=== PATIENT | female | born 1945 | race Caucasian/White ===

== ENCOUNTER 2018-05-31 20:41 | Observation (INO) | payer OTHER, MEDICARE, SELFPAY ==
[2018-05-31 20:41] VITALS: BP 178/88; PULSE 111; RESP 16; TEMP 37.2; O2SAT 94; BMI 33.0
--- NOTE | 2018-05-31 20:47 | EKG12_ITS ---
Test Reason : GENERAL ILLNESS Blood Pressure : / mmHG Vent. Rate : 116 BPM Atrial Rate : 116 BPM P-R Int : 142 ms QRS Dur : 080 ms QT Int : 322 ms P-R-T Axes : 062 018 083 degrees QTc Int : 447 ms Sinus tachycardia Possible Left atrial enlargement Nonspecific T wave abnormality Abnormal ECG Confirmed by PARISH SMTIH, REGI ([id number]), news editor JOSHUA BORDEN ([id number]) on 06/05/2018 10:32:05 AM Referred By: Gina Long Confirmed By:REGI LUGO MD
--- NOTE | 2018-05-31 20:55 | RAD_ITS ---
STUDY: X-RAY CHEST REASON FOR EXAM: Female, 72 years old. Elevated blood pressure, nausea, vomiting and weakness since this morning. TECHNIQUE: Single AP portable view of the chest. COMPARISON: None. FINDINGS: Mild elevation of the right diaphragm. The lungs are clear. Normal size heart. Normal mediastinum and romeo. Normal visualized pulmonary arteries. Mild elongation of the thoracic aorta. Normal visualized thoracic spine. Normal visualized ribs, clavicles, and shoulders. There is no demonstrated abnormality of the visualized soft tissue structures of the upper abdomen. RAD/Chest 1 View (Portable) IMPRESSION: Mild elevation of the right diaphragm. No acute cardiopulmonary findings. Negative for consolidation, focal atelectasis, cardiomegaly or pleural effusion. Electronically Signed: Nini Gamboa MD at 21:12 EST , Service support ,
--- NOTE | 2018-05-31 20:56 | CT_ITS ---
STUDY: CT ABDOMEN AND PELVIS WITHOUT CONTRAST REASON FOR EXAM: Female, 72 years old. Abdominal pain and cramping. History of hypertension, diabetes and cholecystectomy. RADIATION DOSAGE (If Supplied By Facility): CTDIvol = ( 17.70 ) mGy, DLP = ( 888.94 ) mGycm TECHNIQUE: Transaxial images were obtained from the dome of the diaphragm to the symphysis pubis without oral contrast, and without intravenous contrast. Sagittal and coronal images were reconstructed. Individualized dose optimization techniques were used for this CT. COMPARISON: None. FINDINGS: The visualized lung bases are unremarkable. The visualized portions of the heart are within normal limits. Fatty hepatomegaly. Nonvisualized gallbladder. Normal spleen. Normal pancreas. Normal bilateral adrenal glands. The right kidney is depressed by the enlarged liver. Otherwise normal right kidney. Normal left kidney. Nondistended partially food filled stomach. Small hiatal hernia. Mildly dilated and probably food filled proximal small bowel with unremarkable mid and distal small bowel. There is no air in the dilated portion of the proximal small bowel; consequently, mucosal changes are not evaluated. Normal colon. There is non-visualization of the appendix. Minimal calcified plaque of the aorta. Normal inferior vena cava. Normal retroperitoneum. Normal urinary bladder. Negative for pelvic mass or free fluid of the pelvis. Benign globular adnexal/ovarian calcifications. Normal abdominal wall. There are diffuse degenerative changes of the visualized lumbar spine. CT/Abdomen/Pelvis without Cont IMPRESSION: Fatty hepatomegaly. Nonvisualized gallbladder. Unremarkable pancreas and spleen. No acute bowel related findings. Negative for evidence of obstruction, perforation or inflammatory bowel changes. Nondistended food filled stomach and food filled mildly dilated proximal small bowel with unremarkable mid and distal small bowel. The appendix is not identified. Mild diverticulosis of the distal colon without evidence of acute diverticulosis. The right kidney is displaced inferiorly by the enlarged right liver. Otherwise normal right kidney and normal left kidney. Negative for pelvic mass or free fluid of the pelvis. Negative for pelvic mass or free fluid of the pelvis. Electronically Signed: Nini Gamboa MD at 22:17 EST , Service support ,
--- NOTE | 2018-05-31 20:58 | ED.DCSUM_ITS ---
- ER Visit Summary Date of Service: 05/31/18 Chief Complaint: [] Nausea all day today History of Present Illness: The patient is a 72 F [] nonspecific nausea all day she had a piece of toast for breakfast this evening she could not eat dinner because she felt nauseated no vomiting no fever no cough no pain normal bowel bladder habits, history of prior cholecystectomy years ago no cardiopulmonary disease of any kind report she has hypertension diabetes are well controlled Physical Examination: [] Afebrile vital signs are all within normal range see those numbers General, no distress resting comfortably HEENT is generally unremarkable The neck is supple no adenopathy Cardiovascular, regular rate and rhythm Lungs, clear bilateral Abdomen, soft nontender. Slightly distended but there is no pain anywhere she indicates having no bowel habits Extremities, no clubbing cyanosis or edema Neurologic, awake alert answering questions appropriately moving all 4 extremities Test Results: [] Emergency Department Course and Treatment: [] All the above screening labs CT fluids screening labs are generally unremarkable, her CT scan shows what appears to be fluid-filled stomach nonspecific changes otherwise but no obvious obstruction or inflammatory changes or acute process She reports despite the therapy she still feels very nauseated does not feel as if she is taking by mouth I discussed the concept of the above CT findings fluid-filled stomach NG tube placement but she declined that and suggest that she would require admission for further management at this time given all the above I will speak with hospitalist Treatment Plan: [] Disposition: [] Admit stable Impression: [] inTractable nausea, distended stomach on CT gastric outlet obstru ction possible prior cholecystectomy This note was generated with [employer] dictation software. It may contain incorrect words, spelling, and punctuation that were not noted in review of the chart donna or to signing ED Disposition - Plan for ED Patient: Referrals: Neema Bowers DO [Primary Care Provider] -
[2018-05-31 21:04] VITALS: PULSE 112; RESP 16; O2SAT 95
[2018-05-31 21:11] LABS: Absolute Lymphocyte Count 1.71 X10^3/ul (0.83-4.51); Absolute Neutrophil Count 7.9 X10^3/uL (2.0-7.7); Basophil# 0.02 X10^3/uL; Basophil% 0.2 % (0-1); Eosinophil# 0.04 X10^3/uL; Eosinophils% 0.4 % (0-5); Hematocrit 43.5 % (37-47); Hemoglobin 13.8 g/dl (12.0-15.0); Lymphocyte # 1.71 X10^3/ul (4.0); Lymphocyte % 17.2 % (19-41); Mean Corp Hgb Conc 31.7 g/gl (32-36); Mean Corpuscular Hgb 28.2 pg (27.0-32.0); Mean Platelet Vol. 10.7 fl (6.2-12.0); Monocyte# 0.31 X10^3/uL; Monocyte% 3.1 % (0-10); Neutrophil # 7.86 X10^3/uL (2.7-7.7); Neutrophil % 78.8 % (47-70); Platelet Count 315 K/mm3 (150-450); RBC Distribution Width CV 13.5 % (11.6-14.6); RBC Distribution Width SD 43.8 fl (35.1-43.9); Red Blood Count 4.89 M/mm3 (4.2-5.4)
[2018-05-31 21:16] LABS: POSITIVE COUNT NO; POSITIVE DIFFERENTIAL NO; POSITIVE MORPHOLOGY NO
[2018-05-31 21:31] LABS: AST(SGOT) 19 U/L (15-37); Alanine Aminotransfer ALT/SGPT 39 U/L (13-56); Albumin, Serum 3.4 g/dL (3.2-5.0); Alkaline Phosphatase 61 U/L (45-117); Anion Gap 16 (5-15); BUN 11 mg/dL (7-18); BUN/Creat Ratio 12.9 RATIO (10-20); Bilirubin, Direct 0.12 mg/dL (0.00-0.30); Calcium,Total 8.5 mg/dL (8.5-10.1); Chloride 104 mmol/L (98-107); Creatinine, Serum 0.85 mg/dL (0.55-1.02); EST Glomerular Filtration Rate 69 mL/min (>60); Est Glom Filt Rate - Afr Amer 84 mL/min (>60); Estimated Creatinine Clearance 46.62 ml/min; Globulin 4.2 g/dL (2.2-4.2); Glucose 334 mg/dL (74-106); Lipase 132 U/L (73-393); Protein, Total 7.6 g/dL (6.4-8.2); Sodium Level 139 mmol/L (136-145)
[2018-05-31] MEDS: Ondansetron 4 MG/2 ML Vial IV (21:34)
[2018-05-31 21:46] LABS: Bacteria 0 SEEN /hpf (None Seen); Mucous, Urine 0 SEEN /hpf (<or=2+); Red Blood Cells-Urine 0 SEEN /hpf (0-5)
[2018-05-31 21:48] LABS: Color, Urine Yellow (Yellow); Glucose, Dipstick 250 mg/dl (Normal); Ketone-Dipstick 50 mg/dl (Negative); Leukocyte Esterase-Dipstick 25 /ul (Negative); Nitrite-Dipstick Negative (Negative); Occult Blood-Urine 10 /ul (Negative); Protein-Dipstick 30 mg/dl (Negative); Urine Bilirubin Dipstick Negative (Negative); Urine Clarity Sl. Cloudy (Clear); Urine Urobilinogen Normal (Normal)
[2018-05-31 22:03] LABS: Squamous Epithelial Cells - UA 5-10 SEEN /hpf (5-10)
[2018-05-31 22:04] LABS: White Blood Cells 0-5 SEEN /hpf (0-5)
--- NOTE | 2018-05-31 22:40 | PCM.HP.STD ---
Problem List (1) Gastroenteritis Status: Acute (2) Viral syndrome Status: Acute (3) Poorly controlled diabetes mellitus Status: Chronic (4) HTN (hypertension) Status: Chronic Qualifiers: Hypertension type: essential hypertension Qualified Code(s): I10 - Essential (primary) hypertension (5) Obesity (BMI 30.0-34.9) Status: Chronic (6) GERD (gastroesophageal reflux disease) Status: Chronic Qualifiers: Esophagitis presence: esophagitis presence not specified Qualified Code(s): K21.9 - Gastro-esophageal reflux disease without esophagitis History of Present Illness Date of Admission: 05/31/18 Chief Complaint: Intractable nausea without emesis The patient is a 72 y/o F w/ PMHx: HTN, Obesity, Diabetes mellitus type II who presents to the [facility] ED on 05/31/18 with history of persistent intractable nausea with no associated emesis with progressively worsening fatigue and malaise with mildly associated abdominal distention and cramping which patient noted improved while in the ED starting AM on day of presentation. Patient does admit that she is a poorly controlled diabetic and states that her blood sugars run 250-300 normally and she does not follow a diabetic diet. 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 Work-up in the ED included T 98.9, heart rate 111, BP 178/88, respiratory rate 16, 94% on room air, CBC with W BC 10, hemoglobin 13.8, platelet 315 with left shift, CMP with, dioxide 19, anion gap 16, BUN/Cr 11/0.85, glucose 334, trop < 0.015, lipase 132, UA w/ SG 1.020, protein 30, glucose 250, ketones 50, occult blood 50, LE 25 otherwise not marked, acetone negative, UCx pending, CXR w/ mild elevation right diaphragm with no acute cardiopulmonary findings, CT A/P w/ fatty hepatomegaly, nonvisualized gallbladder, unremarkable pancreas and spleen, no acute bowel related findings with no evidence for obstruction, perforation or inflammatory bowel changes however noted nondistended fluid-filled stomach and food filled mildly dilated proximal small bowel with unremarkable mid and distal small bowel, appendix not identified, mild diverticulosis of the distal colon without evidence of acute diverticulosis, right kidney displaced inferiorly by the enlarged right liver otherwise normal right kidney and normal left kidney. In the ED patient pattern hanger normal saline, Zofran. Past Medical History Past Medical History (Chronic Problems): Chronic Problems Poorly controlled diabetes mellitus (Chronic) HTN (hypertension) (Chronic) Obesity (BMI 30.0-34.9) (Chronic) GERD (gastroesophageal reflux disease) (Chronic) Allergies Sulfa (Sulfonamide Antibiotics) Allergy (Verified 05/31/18 20:44) Rash Surgical History: - - Cholecystectomy, appendectomy. Psychiatric History: No pertinent psych hx [employer] History: No pertinent [employer] history Lives: Spouse/ Significant Other Smoking Status: Never smoker Tobacco Use: Non-smoker Alcohol: None Drugs: None - *Family History Maternal History Items: - - Patient notes a maternal family history of heart disease. Sibling History Items: - - Patient notes several brothers with heart disease. Paternal History Items: - - Patient notes a paternal family history of cancer, colon. Review of Systems Constitutional: Reports: Anorexia, Malaise, Weakness, Fatigue. Denies: Chills, Fever, Weight Change HEENT: Denies: Head Aches, Sinus Congestion, Sinus Drainage Cardiovascular: Denies: Chest Pain, Palpitations Respiratory: Denies: Cough, Shortness of breath at rest, Sputum production Gastrointestinal: Reports: Abdominal Pain, Nausea. Denies: Diarrhea, Vomiting Genitourinary: Denies: Dysuria Musculoskeletal: Denies: Joint Pain, Joint Tenderness Skin: Denies: Rash, Wounds Neurological: Denies: Numbness, Tingling, Focal weakness Psychiatric: Denies: Anxiety, Depression, Homicidal Ideations, Suicidal Ideations Hematologic/ Lymphatic: Denies: Easy Bruising, Easy Bleeding VTE Information - Inpt Only VTE Present on Admission: No VTE Mechan Device Prophylaxis: SCD's VTE Pharm Prophylaxis ordered?: Yes Patient Problems: Active and Suspected Problems Gastroenteritis (Acute) Viral syndrome (Acute) Subjective: Seated upright in ED bed, no acute distress, mildly fatigued, notes feeling mildly improved, states previous mild distention feels completely resolved since initial ED presentation. Objective: Physical Examination: General: awake, alert, oriented x 3 and cooperative, seated upright in the ED bed, no acute distress, mildly fatigued appearance. Skin: normal color, turgor, no icterus, cyanosis. HEENT: AT/NC, EOMI, PERRLA, dry MM, no carotid bruits or JVD noted. Lungs: CTA bilaterally, moderate effort, mild decrease BL bases, no rales, ronchi or wheezing. Heart: Regular rate and rhythm; no gallop, rub audible. Abdomen: soft, NTTP, minimally distended, notes improved from prior, mildly hyperactive bowel sounds, + HM. Extremities: no cyanosis, clubbing, or edema. Neurological: patient awake, alert, oriented x 3; cognitive function intact; pupils equally reactive to light and accomodation; cranial nerves II-XII grossly normal, moving all 4 extremities, no focal deficits, strength mildly to moderately globally decreased secondary to acute presentation. Psychiatric: affect appears mildly fatigued, no acute evidence of depressive or anxiety feelings. - Physical Exam Vital Signs Temp Pulse Resp BP Pulse Ox 98.9 F 112 H 16 178/88 H 95 05/31/18 20:41 05/31/18 21:04 05/31/18 21:04 05/31/18 20:41 05/31/18 21:04 Oxygen Delivery Method Room Air Weight: 181 lb Body Mass Index (BMI) 33.0 Laboratory Tests Past 24 Hrs 05/31/18 05/31/18 05/31/18 20:57 20:57 20:57 WBC 10.0 RBC 4.89 Hgb 13.8 Hct 43.5 MCV 89.0 MCH 28.2 MCHC 31.7 L RDW 13.5 RDW Differential 43.8 Plt Count 315 MPV 10.7 Immature Gran % (Auto) 0.300 Neut % (Auto) 78.8 H Lymph % (Auto) 17.2 L [place] % (Auto) 3.1 Eos % (Auto) 0.4 Baso % (Auto) 0.2 Absolute Neuts (auto) 7.9 H Absolute Lymphs (auto) 1.71 Total Counted Not Reportable Sodium 139 Potassium 4.0 Chloride 104 Carbon Dioxide 19.0 L Anion Gap 16 H BUN 11 Creatinine 0.85 Estim Creat Clear Calc 46.62 Est GFR (MDRD) Af Amer 84 Est GFR (MDRD) Non-Af 69 BUN/Creatinine Ratio 12.9 Glucose 334 H Calcium 8.5 Total Bilirubin 0.40 Direct Bilirubin 0.12 AST 19 ALT 39 Alkaline Phosphatase 61 Troponin I < 0.015 Total Protein 7.6 Albumin 3.4 Globulin 4.2 Lipase 132 Urine Color Urine Clarity Urine pH Ur Specific [place] Urine Protein Urine Glucose (UA) Urine Ketones Urine Occult Blood Urine Nitrite Urine Bilirubin Urine Urobilinogen Ur Leukocyte Esterase Urine RBC Urine WBC Ur Squamous Epith Cells Urine Bacteria Urine Mucus Acetone Level NEGATIVE 05/31/18 21:36 WBC RBC Hgb Hct MCV MCH MCHC RDW RDW Differential Plt Count MPV Immature Gran % (Auto) Neut % (Auto) Lymph % (Auto) [place] % (Auto) Eos % (Auto) Baso % (Auto) Absolute Neuts (auto) Absolute Lymphs (auto) Total Counted Sodium Potassium Chloride Carbon Dioxide Anion Gap BUN Creatinine Estim Creat Clear Calc Est GFR (MDRD) Af Amer Est GFR (MDRD) Non-Af BUN/Creatinine Ratio Glucose Calcium Total Bilirubin Direct Bilirubin AST ALT Alkaline Phosphatase Troponin I Total Protein Albumin Globulin Lipase Urine Color Yellow Urine Clarity Sl. Cloudy Urine pH 5.0 Ur Specific [place] 1.020 Urine Protein 30 H Urine Glucose (UA) 250 H Urine Ketones 50 H Urine Occult Blood 10 H Urine Nitrite Negative Urine Bilirubin Negative Urine Urobilinogen Normal Ur Leukocyte Esterase 25 H Urine RBC 0 SEEN Urine WBC 0-5 SEEN Ur Squamous Epith Cells 5-10 SEEN Urine Bacteria 0 SEEN Urine Mucus 0 SEEN Acetone Level Assessment/Plan All Active Problems Gastroenteritis (Acute) Viral syndrome (Acute) The patient is a 72 y/o F w/ PMHx: HTN, Obesity, Diabetes mellitus type II who presents to the [facility] ED on 05/31/18 with history of persistent intractable nausea with no associated emesis with progressively worsening fatigue and malaise with mildly associated abdominal distention and cramping which patient noted improved while in the ED starting AM on day of presentation. (1) Intractable Nausea, Possible Viral Gastroenteritis, Possible Gastroparesis: Work-up in the ED included T 98.9, heart rate 111, BP 178/88, respiratory rate 16, 94% on room air, CBC with W BC 10, hemoglobin 13.8, platelet 315 with left shift, CMP with, dioxide 19, anion gap 16, BUN/Cr 11/0.85, glucose 334, trop < 0.015, lipase 132, UA w/ SG 1.020, protein 30, glucose 250, ketones 50, occult blood 50, LE 25 otherwise not marked, acetone negative, UCx pending, CXR w/ mild elevation right diaphragm with no acute cardiopulmonary findings, CT A/P w/ fatty hepatomegaly, nonvisualized gallbladder, unremarkable pancreas and spleen, no acute bowel related findings with no evidence for obstruction, perforation or inflammatory bowel changes however noted nondistended fluid-filled stomach and food filled mildly dilated proximal small bowel with unremarkable mid and distal small bowel, appendix not identified, mild diverticulosis of the distal colon without evidence of acute diverticulosis, right kidney displaced inferiorly by the enlarged right liver otherwise normal right kidney and normal left kidney. Will admit to MS, continue aggressive hydration, if any onset diarrhea would obtain stool studies, maintain NPO status given intractable nausea, dose reglan low dose q 8 x 3 doses in addition to PRN antiemetics, consideration NG for intractable nausea if no improvement with anti-emetics, will not start antibiotics as suspect viral syndrome, possible gastroenteritis although given poorly controlled DM, gastroparesis possibility but no prior history to now. ED noted concerns for gastric outlet obstruction; however, no overt obstruction on imaging and no transition point noted. (2) Diabetes mellitus type II w/ Elevated BS, mild elevated AG, Urinary Ketones w/ Negative Acetone: Presentation w/ intractable nausea, suspected possible viral illness precipitating,likely presentation w/ mild AG elevation, urinary ketones secondary to dehydration, do not suspect overt DKA, will continue to hydrate, maintain NPO until improved, accu checks w/ ISS, HgbA1c pending, nutrition consulted for education and teaching. (3) Hypertension: Continue home regimen; however, given GI symptoms may not tolerate, in interim PRN hydralazine. (4) Obesity: Weight loss and lifestyle changes encouraged, nutrition consulted. (5) GERD: IV Famotidine. (6) DVT Prophylaxis: SCDs, lovenox. Code Visit OBSV E&M: [id number] Initial observation care L3
--- NOTE | 2018-05-31 22:45 | HP.PCM_ITS ---
Problem List (1) Gastroenteritis Status: Acute (2) Viral syndrome Status: Acute (3) Poorly controlled diabetes mellitus Status: Chronic (4) HTN (hypertension) Status: Chronic Qualifiers: Hypertension type: essential hypertension Qualified Code(s): I10 - Essential (primary) hypertension (5) Obesity (BMI 30.0-34.9) Status: Chronic (6) GERD (gastroesophageal reflux disease) Status: Chronic Qualifiers: Esophagitis presence: esophagitis presence not specified Qualified Code(s): K21.9 - Gastro-esophageal reflux disease without esophagitis History of Present Illness Date of Admission: 05/31/18 Chief Complaint: Intractable nausea without emesis The patient is a 72 y/o F w/ PMHx: HTN, Obesity, Diabetes mellitus type II who presents to the [facility] ED on 05/31/18 with history of persistent intractable nausea with no associated emesis with progressively worsening fatigue and malaise with mildly associated abdominal distention and cramping which patient noted improved while in the ED starting AM on day of presentation. Patient does admit that she is a poorly controlled diabetic and states that her blood sugars run 250-300 normally and she does not follow a diabetic diet. 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 Work-up in the ED included T 98.9, heart rate 111, BP 178/88, respiratory rate 16, 94% on room air, CBC with W BC 10, hemoglobin 13.8, platelet 315 with left shift, CMP with, dioxide 19, anion gap 16, BUN/Cr 11/0.85, glucose 334, trop < 0.015, lipase 132, UA w/ SG 1.020, protein 30, glucose 250, ketones 50, occult blood 50, LE 25 otherwise not marked, acetone negative, UCx pending, CXR w/ mild elevation right diaphragm with no acute cardiopulmonary findings, CT A/P w/ fatty hepatomegaly, nonvisualized gallbladder, unremarkable pancreas and spleen, no acute bowel related findings with no evidence for obstruction, perforation or inflammatory bowel changes however noted nondistended fluid-filled stomach and food filled mildly dilated proximal small bowel with unremarkable mid and distal small bowel, appendix not identified, mild diverticulosis of the distal colon without evidence of acute diverticulosis, right kidney displaced inferiorly by the enlarged right liver otherwise normal right kidney and normal left kidney. In the ED patient framing and hanging normal saline, Zofran. Past Medical History Past Medical History (Chronic Problems): Chronic Problems Poorly controlled diabetes mellitus (Chronic) HTN (hypertension) (Chronic) Obesity (BMI 30.0-34.9) (Chronic) GERD (gastroesophageal reflux disease) (Chronic) Allergies Sulfa (Sulfonamide Antibiotics) Allergy (Verified 05/31/18 20:44) Rash Surgical History: - - Cholecystectomy, appendectomy. Psychiatric History: No pertinent psych hx DIRECTOR REVENUE History: No pertinent DIRECTOR REVENUE history Lives: Spouse/ Significant Other Smoking Status: Never smoker Tobacco Use: Non-smoker Alcohol: None Drugs: None - *Family History Maternal History Items: - - Patient notes a maternal family history of heart disease. Sibling History Items: - - Patient notes several brothers with heart disease. Paternal History Items: - - Patient notes a paternal family history of cancer, colon. Review of Systems Constitutional: Reports: Anorexia, Malaise, Weakness, Fatigue. Denies: Chills, Fever, Weight Change HEENT: Denies: Head Aches, Sinus Congestion, Sinus Drainage Cardiovascular: Denies: Chest Pain, Palpitations Respiratory: Denies: Cough, Shortness of breath at rest, Sputum production Gastrointestinal: Reports: Abdominal Pain, Nausea. Denies: Diarrhea, Vomiting Genitourinary: Denies: Dysuria Musculoskeletal: Denies: Joint Pain, Joint Tenderness Skin: Denies: Rash, Wounds Neurological: Denies: Numbness, Tingling, Focal weakness Psychiatric: Denies: Anxiety, Depression, Homicidal Ideations, Suicidal Ideations Hematologic/ Lymphatic: Denies: Easy Bruising, Easy Bleeding VTE Information - Inpt Only VTE Present on Admission: No VTE Mechan Device Prophylaxis: SCD's VTE Pharm Prophylaxis ordered?: Yes Patient Problems: Active and Suspected Problems Gastroenteritis (Acute) Viral syndrome (Acute) Subjective: Seated upright in ED bed, no acute distress, mildly fatigued, notes feeling mildly improved, states previous mild distention feels completely resolved since initial ED presentation. Objective: Physical Examination: General: awake, alert, oriented x 3 and cooperative, seated upright in the ED bed, no acute distress, mildly fatigued appearance. Skin: normal color, turgor, no icterus, cyanosis. HEENT: AT/NC, EOMI, PERRLA, dry MM, no carotid bruits or JVD noted. Lungs: CTA bilaterally, moderate effort, mild decrease BL bases, no rales, ronchi or wheezing. Heart: Regular rate and rhythm; no gallop, rub audible. Abdomen: soft, NTTP, minimally distended, notes improved from prior, mildly hyperactive bowel sounds, + HM. Extremities: no cyanosis, clubbing, or edema. Neurological: patient awake, alert, oriented x 3; cognitive function intact; pupils equally reactive to light and accomodation; cranial nerves II-XII grossly normal, moving all 4 extremities, no focal deficits, strength mildly to moderately globally decreased secondary to acute presentation. Psychiatric: affect appears mildly fatigued, no acute evidence of depressive or anxiety feelings. - Physical Exam Vital Signs Temp Pulse Resp BP Pulse Ox 98.9 F 112 H 16 178/88 H 95 05/31/18 20:41 05/31/18 21:04 05/31/18 21:04 05/31/18 20:41 05/31/18 21:04 Oxygen Delivery Method Room Air Weight: 181 lb Body Mass Index (BMI) 33.0 Laboratory Tests Past 24 Hrs 05/31/18 05/31/18 05/31/18 20:57 20:57 20:57 WBC 10.0 RBC 4.89 Hgb 13.8 Hct 43.5 MCV 89.0 MCH 28.2 MCHC 31.7 L RDW 13.5 RDW Differential 43.8 Plt Count 315 MPV 10.7 Immature Gran % (Auto) 0.300 Neut % (Auto) 78.8 H Lymph % (Auto) 17.2 L [place] % (Auto) 3.1 Eos % (Auto) 0.4 Baso % (Auto) 0.2 Absolute Neuts (auto) 7.9 H Absolute Lymphs (auto) 1.71 Total Counted Not Reportable Sodium 139 Potassium 4.0 Chloride 104 Carbon Dioxide 19.0 L Anion Gap 16 H BUN 11 Creatinine 0.85 Estim Creat Clear Calc 46.62 Est GFR (MDRD) Af Amer 84 Est GFR (MDRD) Non-Af 69 BUN/Creatinine Ratio 12.9 Glucose 334 H Calcium 8.5 Total Bilirubin 0.40 Direct Bilirubin 0.12 AST 19 ALT 39 Alkaline Phosphatase 61 Troponin I < 0.015 Total Protein 7.6 Albumin 3.4 Globulin 4.2 Lipase 132 Urine Color Urine Clarity Urine pH Ur Specific [place] Urine Protein Urine Glucose (UA) Urine Ketones Urine Occult Blood Urine Nitrite Urine Bilirubin Urine Urobilinogen Ur Leukocyte Esterase Urine RBC Urine WBC Ur Squamous Epith Cells Urine Bacteria Urine Mucus Acetone Level NEGATIVE 05/31/18 21:36 WBC RBC Hgb Hct MCV MCH MCHC RDW RDW Differential Plt Count MPV Immature Gran % (Auto) Neut % (Auto) Lymph % (Auto) [place] % (Auto) Eos % (Auto) Baso % (Auto) Absolute Neuts (auto) Absolute Lymphs (auto) Total Counted Sodium Potassium Chloride Carbon Dioxide Anion Gap BUN Creatinine Estim Creat Clear Calc Est GFR (MDRD) Af Amer Est GFR (MDRD) Non-Af BUN/Creatinine Ratio Glucose Calcium Total Bilirubin Direct Bilirubin AST ALT Alkaline Phosphatase Troponin I Total Protein Albumin Globulin Lipase Urine Color Yellow Urine Clarity Sl. Cloudy Urine pH 5.0 Ur Specific [place] 1.020 Urine Protein 30 H Urine Glucose (UA) 250 H Urine Ketones 50 H Urine Occult Blood 10 H Urine Nitrite Negative Urine Bilirubin Negative Urine Urobilinogen Normal Ur Leukocyte Esterase 25 H Urine RBC 0 SEEN Urine WBC 0-5 SEEN Ur Squamous Epith Cells 5-10 SEEN Urine Bacteria 0 SEEN Urine Mucus 0 SEEN Acetone Level Assessment/Plan All Active Problems Gastroenteritis (Acute) Viral syndrome (Acute) The patient is a 72 y/o F w/ PMHx: HTN, Obesity, Diabetes mellitus type II who presents to the [facility] ED on 05/31/18 with history of persistent intractable nausea with no associated emesis with progressively worsening fatigue and malaise with mildly associated abdominal distention and cramping which patient noted improved while in the ED starting AM on day of presentation. (1) Intractable Nausea, Possible Viral Gastroenteritis, Possible Gastroparesis: Work-up in the ED included T 98.9, heart rate 111, BP 178/88, respiratory rate 16, 94% on room air, CBC with W BC 10, hemoglobin 13.8, platelet 315 with left shift, CMP with, dioxide 19, anion gap 16, BUN/Cr 11/0.85, glucose 334, trop < 0.015, lipase 132, UA w/ SG 1.020, protein 30, glucose 250, ketones 50, occult blood 50, LE 25 otherwise not marked, acetone negative, UCx pending, CXR w/ mild elevation right diaphragm with no acute cardiopulmonary findings, CT A/P w/ fatty hepatomegaly, nonvisualized gallbladder, unremarkable pancreas and spleen, no acute bowel related findings with no evidence for obstruction, perforation or inflammatory bowel changes however noted nondistended fluid-filled stomach and food filled mildly dilated proximal small bowel with unremarkable mid and distal small bowel, appendix not identified, mild diverticulosis of the distal colon without evidence of acute diverticulosis, right kidney displaced inferiorly by the enlarged right liver otherwise normal right kidney and normal left kidney. Will admit to MS, continue aggressive hydration, if any onset diarrhea would obtain stool studies, maintain NPO status given intractable nausea, dose reglan low dose q 8 x 3 doses in addition to PRN antiemetics, consideration NG for intractable nausea if no improvement with anti-emetics, will not start antibiotics as suspect viral syndrome, possible gastroenteritis although given poorly controlled DM, gastroparesis possibility but no prior history to now. ED noted concerns for gastric outlet obstruction; however, no overt obstruction on imaging and no transition point noted. (2) Diabetes mellitus type II w/ Elevated BS, mild elevated AG, Urinary Ketones w/ Negative Acetone: Presentation w/ intractable nausea, suspected possible viral illness precipitating,likely presentation w/ mild AG elevation, urinary ketones secondary to dehydration, do not suspect overt DKA, will continue to hydrate, maintain NPO until improved, accu checks w/ ISS, HgbA1c pending, nutrition consulted for education and teaching. (3) Hypertension: Continue home regimen; however, given GI symptoms may not tolerate, in interim PRN hydralazine. (4) Obesity: Weight loss and lifestyle changes encouraged, nutrition consulted. (5) GERD: IV Famotidine. (6) DVT Prophylaxis: SCDs, lovenox. Code Visit OBSV E&M: 75838 Initial observation care L3
[2018-05-31] MEDS: 0.9% Normal Saline 1,000 ML 999 ML IV (23:12)
[2018-05-31 23:13] VITALS: BP 155/73; PULSE 102; RESP 18; O2SAT 93
[2018-05-31 23:15] VITALS: BP 155/73; PULSE 102; RESP 18; O2SAT 93
[2018-05-31 23:34] VITALS: BP 153/65; PULSE 98; RESP 16; TEMP 36.9; O2SAT 98
[2018-05-31 23:35] VITALS: BMI 34.0
[2018-05-31 23:40] VITALS: BMI 34.0
[2018-05-31 23:45] LABS: Magnesium 1.5 mg/dL (1.6-2.6)
[2018-06-01] MEDS: Metoclopramide 10 MG/2 ML Vial 2.5 MG IV ×3 (00:02→15:11)
[2018-06-01] MEDS: Insulin Lispro 100 UNIT/ML INSULN.PEN 10 UNIT SC (00:03)
[2018-06-01 00:10] LABS: Bedside Glucose 282 mg/dL (70-110)
[2018-06-01 00:10] LABS: Hemoglobin A1c 11.4 % (4.2-6.3)
[2018-06-01] MEDS: 0.9% Normal Saline 1,000 ML 150 ML IV ×3 (00:10→12:00)
[2018-06-01] MEDS: Acetaminophen 325 MG Tablet 650 MG PO ×2 (01:58→21:13)
[2018-06-01 05:22] VITALS: BP 134/69; PULSE 98; RESP 18; TEMP 36.8; O2SAT 95
[2018-06-01] MEDS: 0.9% NaCl Peripheral Flush Adult/Peds IV ×2 (05:26→21:13)
[2018-06-01] MEDS: Insulin Lispro 100 UNIT/ML INSULN.PEN SC ×3 (05:26→18:31)
--- NOTE | 2018-06-01 05:55 | RAD_ITS ---
STUDY: X-RAY - ABDOMEN/PELVIS REASON FOR EXAM: Female, 72 years old. Cramping, pain and nausea. TECHNIQUE: AP supine and upright views of the abdomen and pelvis. COMPARISON: CT of the abdomen and pelvis, May 31, 2018. FINDINGS: Normal visualized lung bases. There is an unremarkable bowel gas pattern. Air is seen throughout the nondistended colon without obstruction. There is no evidence of mass. There is no demonstrated free abdominal air. The visualized liver, spleen and kidneys are grossly normal in size and morphology. Normal soft tissue structures. There are diffuse degenerative changes of the visualized lumbar spine. RAD/Abd Inc Decub and/or Erect IMPRESSION: No evidence of acute intra-abdominal or pelvic process. Electronically Signed: Hipolito Richmond DO at 17:18 EST Tel [phone], Service support ,
[2018-06-01 06:26] LABS: Bedside Glucose 285 mg/dL (70-110)
[2018-06-01 06:32] LABS: Absolute Neutrophil Count 5.2 X10^3/uL (2.0-7.7); Basophil# 0.01 X10^3/uL; Basophil% 0.1 % (0-1); Eosinophil# 0.04 X10^3/uL; Eosinophils% 0.6 % (0-5); Hematocrit 38.3 % (37-47); Hemoglobin 12.2 g/dl (12.0-15.0); Lymphocyte % 21.1 % (19-41); Mean Corp Hgb Conc 31.9 g/gl (32-36); Mean Corpuscular Hgb 28.6 pg (27.0-32.0); Mean Corpuscular Volume 89.9 fL (81-99); Mean Platelet Vol. 10.9 fl (6.2-12.0); Monocyte# 0.28 X10^3/uL; Monocyte% 3.9 % (0-10); Neutrophil # 5.24 X10^3/uL (2.7-7.7); Neutrophil % 73.6 % (47-70); Platelet Count 250 K/mm3 (150-450); RBC Distribution Width CV 13.4 % (11.6-14.6); RBC Distribution Width SD 43.4 fl (35.1-43.9); Red Blood Count 4.26 M/mm3 (4.2-5.4); White Blood Count 7.1 K/mm3 (4.4-11.0)
[2018-06-01 06:34] LABS: Anion Gap 11 (5-15); BUN 9 mg/dL (7-18); BUN/Creat Ratio 14.8 RATIO (10-20); Calcium,Total 7.4 mg/dL (8.5-10.1); Chloride 110 mmol/L (98-107); Creatinine, Serum 0.61 mg/dL (0.55-1.02); EST Glomerular Filtration Rate 102 mL/min (>60); Est Glom Filt Rate - Afr Amer 124 mL/min (>60); Estimated Creatinine Clearance 39.63 ml/min; Glucose 315 mg/dL (74-106); Potassium 3.4 mmol/L (3.5-5.1); Sodium Level 141 mmol/L (136-145)
[2018-06-01 06:39] LABS: POSITIVE COUNT NO; POSITIVE DIFFERENTIAL NO; POSITIVE MORPHOLOGY NO
--- NOTE | 2018-06-01 06:47 | PCM.PROGNOTE ---
Patient Problems: Active and Suspected Problems Gastroenteritis (Acute) Viral syndrome (Acute) Subjective: The patient is a 72-year-old female with a past medical history of hypertension, morbid obesity, diabetes mellitus type 2 and GERD who presented to the emergency department at [facility] on 05/31/2018 complaining of persistent nausea. She denied emesis but complained of fatigue/malaise/abdominal distention and cramping. She admitted to not controlling her diabetes and her blood sugars routinely run in the 250-300 range. Vital signs in the emergency department were temperature 98.9, heart rate 111, blood pressure 178/88, respiratory rate 16 and she was 94% saturated on room air. The white blood cell count was 10 with a hemoglobin of 13.8 and platelets of 315,000. There was a left shift. Serum bicarb was low at 9 and the anion gap was increased at 16. Random glucose was 334. Hemoglobin A1c was 11.4%. Mag was low at 1.5 and the LFTs were within normal limits. Lipase was normal at 132. UA was unremarkable. A CT scan of the abdomen and pelvis showed a nonvisualized gallbladder, unremarkable pancreas, fatty infiltration of the liver, a nondistended fluid-filled stomach and fluid-filled mildly dilated proximal small bowel with an unremarkable mid and distal small bowel. There was diverticulosis with no evidence of diverticulitis. She was admitted to the hospital with a diagnosis of gastroenteritis versus gastroparesis secondary to long-standing uncontrolled diabetes mellitus. She was made n.p.o. and IV fluids were ordered. Repeat KUB on 06/01/2018 12 BM's today no recent antibiotics. No sick contacts and no recent travel. Has never had C DIFF. Denies N/V Objective: PHYSICAL EXAM: GENERAL: alert, oriented X 3, Cooperative, NAD, lying flat in bed with no respiratory distress ORAL: moist mucosa, no mucosal lesions NECK: No JVD, supple, trachea midline LUNGS: CTA, symmetric chest expansion HEART: RRR, Normal S1 and S2, no rub, no gallop ABDOMEN: soft, NT, ND, hyperactive BS present, no guarding with palpation, no masses EXTREMITIES: no edema, no cyanosis, no calf tenderness SKIN: No rashes, no breakdown NEUROLOGIC: no focal neurologic deficits PSYCH: appropriate, normal affect, pleasant - Physical Exam Vital Signs Temp Pulse Resp BP Pulse Ox 98.3 F 98 18 134/69 H 95 02/15/19 05:22 06/01/18 05:22 06/01/18 05:22 06/01/18 05:22 06/01/18 05:22 Oxygen Delivery Method Room Air Weight: 186 lb 1.122 oz Body Mass Index (BMI) 34.0 Intake and Output for Last 24 Hours 05/30/18 05/31/18 06/01/18 23:59 23:59 23:59 Intake Total 1217 / 1217 Output Total 300 / 300 Balance 917 / 917 Laboratory Tests Past 24 Hrs 05/31/18 05/31/18 05/31/18 20:57 20:57 20:57 WBC 10.0 RBC 4.89 Hgb 13.8 Hct 43.5 MCV 89.0 MCH 28.2 MCHC 31.7 L RDW 13.5 RDW Differential 43.8 Plt Count 315 MPV 10.7 Immature Gran % (Auto) 0.300 Neut % (Auto) 78.8 H Lymph % (Auto) 17.2 L [place] % (Auto) 3.1 Eos % (Auto) 0.4 Baso % (Auto) 0.2 Absolute Neuts (auto) 7.9 H Absolute Lymphs (auto) 1.71 Total Counted Not Reportable Sodium 139 Potassium 4.0 Chloride 104 Carbon Dioxide 19.0 L Anion Gap 16 H BUN 11 Creatinine 0.85 Estim Creat Clear Calc 46.62 Est GFR (MDRD) Af Amer 84 Est GFR (MDRD) Non-Af 69 BUN/Creatinine Ratio 12.9 Glucose 334 H Hemoglobin A1c Calcium 8.5 Magnesium Total Bilirubin 0.40 Direct Bilirubin 0.12 AST 19 ALT 39 Alkaline Phosphatase 61 Troponin I < 0.015 Total Protein 7.6 Albumin 3.4 Globulin 4.2 Lipase 132 Urine Color Urine Clarity Urine pH Ur Specific [place] Urine Protein Urine Glucose (UA) Urine Ketones Urine Occult Blood Urine Nitrite Urine Bilirubin Urine Urobilinogen Ur Leukocyte Esterase Urine RBC Urine WBC Ur Squamous Epith Cells Urine Bacteria Urine Mucus Acetone Level NEGATIVE 05/31/18 05/31/18 05/31/18 20:57 20:57 21:36 WBC RBC Hgb Hct MCV MCH MCHC RDW RDW Differential Plt Count MPV Immature Gran % (Auto) Neut % (Auto) Lymph % (Auto) [place] % (Auto) Eos % (Auto) Baso % (Auto) Absolute Neuts (auto) Absolute Lymphs (auto) Total Counted Sodium Potassium Chloride Carbon Dioxide Anion Gap BUN Creatinine Estim Creat Clear Calc Est GFR (MDRD) Af Amer Est GFR (MDRD) Non-Af BUN/Creatinine Ratio Glucose Hemoglobin A1c 11.4 H Calcium Magnesium 1.5 L Total Bilirubin Direct Bilirubin AST ALT Alkaline Phosphatase Troponin I Total Protein Albumin Globulin Lipase Urine Color Yellow Urine Clarity Sl. Cloudy Urine pH 5.0 Ur Specific [place] 1.020 Urine Protein 30 H Urine Glucose (UA) 250 H Urine Ketones 50 H Urine Occult Blood 10 H Urine Nitrite Negative Urine Bilirubin Negative Urine Urobilinogen Normal Ur Leukocyte Esterase 25 H Urine RBC 0 SEEN Urine WBC 0-5 SEEN Ur Squamous Epith Cells 5-10 SEEN Urine Bacteria 0 SEEN Urine Mucus 0 SEEN Acetone Level 06/01/18 06/01/18 05:50 05:50 WBC 7.1 RBC 4.26 Hgb 12.2 Hct 38.3 MCV 89.9 MCH 28.6 MCHC 31.9 L RDW 13.4 RDW Differential 43.4 Plt Count 250 MPV 10.9 Immature Gran % (Auto) 0.700 Neut % (Auto) 73.6 H Lymph % (Auto) 21.1 [place] % (Auto) 3.9 Eos % (Auto) 0.6 Baso % (Auto) 0.1 Absolute Neuts (auto) 5.2 Absolute Lymphs (auto) 1.50 Total Counted Not Reportable Sodium 141 Potassium 3.4 L Chloride 110 H Carbon Dioxide 20.0 L Anion Gap 11 BUN 9 Creatinine 0.61 Estim Creat Clear Calc 39.63 Est GFR (MDRD) Af Amer 124 Est GFR (MDRD) Non-Af 102 BUN/Creatinine Ratio 14.8 Glucose 315 H Hemoglobin A1c Calcium 7.4 L Magnesium Total Bilirubin Direct Bilirubin AST ALT Alkaline Phosphatase Troponin I Total Protein Albumin Globulin Lipase Urine Color Urine Clarity Urine pH Ur Specific [place] Urine Protein Urine Glucose (UA) Urine Ketones Urine Occult Blood Urine Nitrite Urine Bilirubin Urine Urobilinogen Ur Leukocyte Esterase Urine RBC Urine WBC Ur Squamous Epith Cells Urine Bacteria Urine Mucus Acetone Level POC Glucose 06/01/18 06/01/18 05:25 00:04 POC Glucose 285 H 282 H Medical Necessity - Tobacco Use Smoking Status: Never smoker Tobacco Use: Non-smoker Assessment/Plan All Active Problems Gastroenteritis (Acute) Viral syndrome (Acute) 1. Gastroenteritis 2. Uncontrolled diabetes mellitus 3. Hypertension 4. Obesity 5. GERD 6. Hypokalemia 7. Metabolic acidosis secondary to diarrhea Fecal leuko's, enteric pathogen panel Recheck lab in the a.m. Continue to hydrate Supplement potassium Start clear liquids Code Visit Inpatient E&M: 08336 Subs Hosp L2
--- NOTE | 2018-06-01 08:23 | NURSING ---
pt off unit for ordered xray at this time.
[2018-06-01] MEDS: Enoxaparin 40 MG/0.4 ML Syringe SC (09:45)
--- NOTE | 2018-06-01 10:23 | NURSING ---
Pt's called in requesting to have pt's diagnosis. This RN checked with pt and obtained verbal consent prior to sharing any information with . Notified that diagnosis written is gastroenteritis-- but advised that this is not confirmed- just possible diagnosis. asked how to spell and was assisted with same. Denied further questions.
[2018-06-01 15:26] LABS: Bedside Glucose 210 mg/dL (70-110)
[2018-06-01 18:41] LABS: Bedside Glucose 197 mg/dL (70-110)
[2018-06-01 20:01] VITALS: BP 145/76; PULSE 91; RESP 16; TEMP 37.2; O2SAT 98
[2018-06-02] MEDS: Insulin Lispro 100 UNIT/ML INSULN.PEN SC ×3 (00:15→11:50)
[2018-06-02 00:21] LABS: Bedside Glucose 209 mg/dL (70-110)
[2018-06-02 02:00] VITALS: BP 140/76; PULSE 87; RESP 18; TEMP 37.1; O2SAT 94
[2018-06-02 06:40] LABS: Bedside Glucose 222 mg/dL (70-110)
[2018-06-02 06:50] LABS: Absolute Lymphocyte Count 1.56 X10^3/ul (0.83-4.51); Absolute Neutrophil Count 3.3 X10^3/uL (2.0-7.7); Basophil# 0.02 X10^3/uL; Basophil% 0.4 % (0-1); Eosinophil# 0.05 X10^3/uL; Eosinophils% 0.9 % (0-5); Hematocrit 38.1 % (37-47); Hemoglobin 12.2 g/dl (12.0-15.0); Lymphocyte # 1.56 X10^3/ul (4.0); Mean Corpuscular Hgb 28.7 pg (27.0-32.0); Mean Corpuscular Volume 89.6 fL (81-99); Mean Platelet Vol. 10.6 fl (6.2-12.0); Monocyte# 0.45 X10^3/uL; Monocyte% 8.4 % (0-10); Neutrophil # 3.28 X10^3/uL (2.7-7.7); Neutrophil % 60.9 % (47-70); Platelet Count 239 K/mm3 (150-450); RBC Distribution Width CV 13.4 % (11.6-14.6); RBC Distribution Width SD 43.4 fl (35.1-43.9); Red Blood Count 4.25 M/mm3 (4.2-5.4); White Blood Count 5.4 K/mm3 (4.4-11.0)
[2018-06-02 07:03] LABS: POSITIVE COUNT NO; POSITIVE DIFFERENTIAL NO; POSITIVE MORPHOLOGY NO
[2018-06-02 07:06] VITALS: O2SAT 94
[2018-06-02 07:06] LABS: Anion Gap 10 (5-15); BUN 3 mg/dL (7-18); BUN/Creat Ratio 6.3 RATIO (10-20); Calcium,Total 7.3 mg/dL (8.5-10.1); Chloride 111 mmol/L (98-107); Creatinine, Serum 0.48 mg/dL (0.55-1.02); EST Glomerular Filtration Rate 135 mL/min (>60); Est Glom Filt Rate - Afr Amer 163 mL/min (>60); Estimated Creatinine Clearance 39.63 ml/min; Glucose 243 mg/dL (74-106); Magnesium 1.6 mg/dL (1.6-2.6); Phosphorus 2.2 mg/dL (2.5-4.9); Potassium 3.1 mmol/L (3.5-5.1); Sodium Level 142 mmol/L (136-145)
[2018-06-02 10:30] VITALS: BP 156/89; PULSE 83; RESP 18; TEMP 36.9; O2SAT 96
[2018-06-02] MEDS: Enoxaparin 40 MG/0.4 ML Syringe SC (10:44)
[2018-06-02 11:56] LABS: Bedside Glucose 193 mg/dL (70-110)
--- NOTE | 2018-06-02 12:24 | PCM.PROGNOTE ---
Patient Problems: Active and Suspected Problems Gastroenteritis (Acute) Viral syndrome (Acute) Subjective: All events of the past 24 hours of been reviewed. She has been afebrile since admission. Blood pressures are mildly increased. She is 94-98% saturated on room air. All lab was personally reviewed. CBC is within normal limits. Potassium is low at 3.1 today and the BUN is 3 with a creatinine of 0.48. Phosphorus is low at 2.2 and the magnesium is 1.6. Blood sugars are in the high 100s and low 200s. Fecal leukocytes were positive. Apparently there was no stool collected for the enteric pathogen panel. Urine culture had mixed gram-positive and gram-negative organisms in the urine had only 0-5 WBCs with no bacteria so urinary tract infection has been ruled out. - Physical Exam Vital Signs Temp Pulse Resp BP Pulse Ox 98.5 F 83 18 156/89 H 96 06/02/18 10:30 06/02/18 10:30 06/02/18 10:30 06/02/18 10:30 06/02/18 10:30 Oxygen Delivery Method Room Air Weight: 186 lb 1.122 oz Body Mass Index (BMI) 34.0 Intake and Output for Last 24 Hours 05/31/18 06/01/18 06/02/18 23:59 23:59 23:59 Intake Total 1217 / 1217 4756 / 4756 Output Total 300 / 300 1100 / 1100 Balance 917 / 917 3656 / 3656 Microbiology Past 72 Hours 05/31/18 21:36 Urine Culture - Final Urine, Clean Catch Mixed Gram Pos & Gram Neg Org 06/02/18 05:39 Stool Lactoferrin - Final Stool Laboratory Tests Past 24 Hrs 06/02/18 06/02/18 06:34 06:34 WBC 5.4 RBC 4.25 Hgb 12.2 Hct 38.1 MCV 89.6 MCH 28.7 MCHC 32.0 RDW 13.4 RDW Differential 43.4 Plt Count 239 MPV 10.6 Immature Gran % (Auto) 0.400 Neut % (Auto) 60.9 Lymph % (Auto) 29.0 [place] % (Auto) 8.4 Eos % (Auto) 0.9 Baso % (Auto) 0.4 Absolute Neuts (auto) 3.3 Absolute Lymphs (auto) 1.56 Total Counted Not Reportable Sodium 142 Potassium 3.1 L Chloride 111 H Carbon Dioxide 21.0 Anion Gap 10 BUN 3 L Creatinine 0.48 L Estim Creat Clear Calc 39.63 Est GFR (MDRD) Af Amer 163 Est GFR (MDRD) Non-Af 135 BUN/Creatinine Ratio 6.3 L Glucose 243 H Calcium 7.3 L Phosphorus 2.2 L Magnesium 1.6 POC Glucose 06/02/18 06/02/18 06/02/18 11:48 06:35 00:13 POC Glucose 193 H 222 H 209 H 06/01/18 06/01/18 18:29 15:09 POC Glucose 197 H 210 H Medical Necessity - Tobacco Use Smoking Status: Never smoker Tobacco Use: Non-smoker Assessment/Plan All Active Problems Gastroenteritis (Acute) Viral syndrome (Acute)
--- NOTE | 2018-06-02 14:20 | PCM.DC ---
- Discharge Diagnoses Current Active Problems: Current Active and Chronic Problems Gastroenteritis (Acute) Viral syndrome (Acute) Poorly controlled diabetes mellitus (Chronic) HTN (hypertension) (Chronic) Obesity (BMI 30.0-34.9) (Chronic) GERD (gastroesophageal reflux disease) (Chronic) You will use the following diet at home:: Other - stick to a 1600 calorie diet to help lose weight and get control of the blood sugars. No caffeine for 1 week and no dairy of the next 7-10 days.....caffeine and dairy will increase diarrhea. I would stick to a soft diet for the next 24 hours and then advance as tolerated. Your food should be the consistency of: Regular Your liquids should be the consistency of: Regular/Thin Discharge Activity: Return to Normal Activity Return to work on:: 06/05/18 Call your doctor if you observe: Fever of 101 or Higher, Dizziness, Fainting spells, - - recurrent nausea and vomiting, uncontrollable diarrhea, abdominal pain Instructions: ED Gastroenteritis Viral, MyPlate Worksheet: 1,600 Calories, Using a Blood Sugar Log, Long-Term Complications of Diabetes, Resources for People with Diabetes Additional Instructions: 1. The vice president of news's at the hospital have a program to help diabetics manage their diet and teach you how to make better choices in food. You will need a referral from Dr. Bowers or your current PCP to attend the program. Exercise will help to bring the blood sugar down. Weight loss also helps to bring the blood sugar down and walking is great exercise. 2. Uncontrolled diabetes makes you urinate a lot and this leads to dehydration, low potassium, low phosphorous and low magnesium. I am giving you prescriptions for potassium and phosphorous to take for the next few days to bring the potassium and the phosphorous into the normal range. 3. I am giving you a prescription for a medication to help control the blood sugars......it is called Glimiperide and you will take it once a day. Write the blood sugars down when you take it......Take it in the morning before breakfast and at night 2 hours after supper. Bring the record to your next doctor's appt. 4. It is OK for you to take Kaopectate or immodium for the diarrhea Allergies/Adverse Reactions: Allergies Sulfa (Sulfonamide Antibiotics) Allergy (Verified 05/31/18 23:39) Rash Medications to take at Discharge Glimepiride [Amaryl] 2 mg PO DAILY #30 tab 06/02/18 Na Biphos/Potassium Phosphate [Neutra-Phos Packet] 2 packet PO BID #16 packet 06/02/18 Potassium Chloride [K-Dur] 20 meq PO BID #6 tab 06/02/18 The following prescriptions were given: Glimepiride [Amaryl] 2 mg PO DAILY #30 tab Na Biphos/Potassium Phosphate [Neutra-Phos Packet] 2 packet PO BID #16 packet Potassium Chloride [K-Dur] 20 meq PO BID #6 tab Primary Care Physician: Neema Bowers DO [Primary Care Provider] - Please follow up with your Primary Care Physician in: 2 weeks Test Results: Test results from this visit will be discussed in further detail at your follow-up appointment, if applicable. Proposed Discharge Date: 06/02/18
--- NOTE | 2018-06-02 14:25 | DCINST_ITS ---
- Discharge Diagnoses Current Active Problems: Current Active and Chronic Problems Gastroenteritis (Acute) Viral syndrome (Acute) Poorly controlled diabetes mellitus (Chronic) HTN (hypertension) (Chronic) Obesity (BMI 30.0-34.9) (Chronic) GERD (gastroesophageal reflux disease) (Chronic) You will use the following diet at home:: Other - stick to a 1600 calorie diet to help lose weight and get control of the blood sugars. No caffeine for 1 week and no dairy of the next 7-10 days.....caffeine and dairy will increase diarrhea. I would stick to a soft diet for the next 24 hours and then advance as tolerated. Your food should be the consistency of: Regular Your liquids should be the consistency of: Regular/Thin Discharge Activity: Return to Normal Activity Return to work on:: 06/05/18 Call your doctor if you observe: Fever of 101 or Higher, Dizziness, Fainting spells, - - recurrent nausea and vomiting, uncontrollable diarrhea, abdominal pain Instructions: ED Gastroenteritis Viral, MyPlate Worksheet: 1,600 Calories, Using a Blood Sugar Log, Long-Term Complications of Diabetes, Resources for People with Diabetes Additional Instructions: 1. The [employer]'s at the hospital have a program to help diabetics manage their diet and teach you how to make better choices in food. You will need a referral from Dr. Bowers or your current PCP to attend the program. Exercise will help to bring the blood sugar down. Weight loss also helps to bring the blood sugar down and walking is great exercise. 2. Uncontrolled diabetes makes you urinate a lot and this leads to dehydration, low potassium, low phosphorous and low magnesium. I am giving you prescriptions for potassium and phosphorous to take for the next few days to bring the potassium and the phosphorous into the normal range. 3. I am giving you a prescription for a medication to help control the blood sugars......it is called Glimiperide and you will take it once a day. Write the blood sugars down when you take it......Take it in the morning before breakfast and at night 2 hours after supper. Bring the record to your next doctor's appt. 4. It is OK for you to t roopa Kaopectate or immodium for the diarrhea Allergies/Adverse Reactions: Allergies Sulfa (Sulfonamide Antibiotics) Allergy (Verified 05/31/18 23:39) Rash Medications to take at Discharge Glimepiride [Amaryl] 2 mg PO DAILY #30 tab 06/02/18 Na Biphos/Potassium Phosphate [Neutra-Phos Packet] 2 packet PO BID #16 packet 06/02/18 Potassium Chloride [K-Dur] 20 meq PO BID #6 tab 06/02/18 The following prescriptions were given: Glimepiride [Amaryl] 2 mg PO DAILY #30 tab Na Biphos/Potassium Phosphate [Neutra-Phos Packet] 2 packet PO BID #16 packet Potassium Chloride [K-Dur] 20 meq PO BID #6 tab Primary Care Physician: Neema Bowers DO [Primary Care Provider] - Please follow up with your Primary Care Physician in: 2 weeks Test Results: Test results from this visit will be discussed in further detail at your follow- up appointment, if applicable. Proposed Discharge Date: 06/02/18
--- NOTE | 2018-06-02 14:33 | PCM.DC.SUM ---
Discharge Date and Diagnosis Date of Admission: 05/31/18 Date of Discharge: 06/02/18 - Primary Discharge Diagnosis Active and Suspected Problems Gastroenteritis (Acute) Viral syndrome (Acute) Metabolic acidosis (Acute) Hypomagnesemia (Acute) Hypokalemia (Acute) Hypophosphatemia - Secondary Discharge Diagnosis Chronic Problems Poorly controlled diabetes mellitus (Chronic) - not taking any medication and the HGBA1C is 11.4% HTN (hypertension) (Chronic) Obesity (BMI 30.0-34.9) (Chronic) GERD (gastroesophageal reflux disease) (Chronic) Diverticulosis Hospital Course and Treatment Imaging Results: Clinical Impression(s) from Imaging Studies Chest X-Ray 05/31/18 20:55 IMPRESSION: Mild elevation of the right diaphragm. No acute cardiopulmonary findings. Negative for consolidation, focal atelectasis, cardiomegaly or pleural effusion. Electronically Signed: Nini Gamboa MD at 21:12 EST , Service support , Abdomen/Pelvis CT 05/31/18 20:56 IMPRESSION: Fatty hepatomegaly. Nonvisualized gallbladder. Unremarkable pancreas and spleen. No acute bowel related findings. Negative for evidence of obstruction, perforation or inflammatory bowel changes. Nondistended food filled stomach and food filled mildly dilated proximal small bowel with unremarkable mid and distal small bowel. The appendix is not identified. Mild diverticulosis of the distal colon without evidence of acute diverticulosis. The right kidney is displaced inferiorly by the enlarged right liver. Otherwise normal right kidney and normal left kidney. Negative for pelvic mass or free fluid of the pelvis. Negative for pelvic mass or free fluid of the pelvis. Electronically Signed: Nini Gamboa MD at 22:17 EST , Service support , Abdomen X-Ray 06/01/18 05:55 IMPRESSION: No evidence of acute intra-abdominal or pelvic process. Electronically Signed: Hipolito Richmond DO at 17:18 EST Tel [phone], Service support , Microbiology 05/31/18 21:36 Urine, Clean Catch Urine Culture - Final Mixed Gram Pos & Gram Neg Org 06/02/18 05:39 Stool Stool Lactoferrin - Final Laboratory Results - last 24 hr 06/01/18 06/01/18 06/02/18 15:09 18:29 00:13 WBC RBC Hgb Hct MCV MCH MCHC RDW RDW Differential Plt Count MPV Immature Gran % (Auto) Neut % (Auto) Lymph % (Auto) Power % (Auto) Eos % (Auto) Baso % (Auto) Absolute Neuts (auto) Absolute Lymphs (auto) Total Counted Sodium Potassium Chloride Carbon Dioxide Anion Gap BUN Creatinine Estim Creat Clear Calc Est GFR (MDRD) Af Amer Est GFR (MDRD) Non-Af BUN/Creatinine Ratio Glucose Calcium Phosphorus Magnesium POC Glucose 210 H 197 H 209 H 06/02/18 06/02/18 06/02/18 06:34 06:34 06:35 WBC 5.4 RBC 4.25 Hgb 12.2 Hct 38.1 MCV 89.6 MCH 28.7 MCHC 32.0 RDW 13.4 RDW Differential 43.4 Plt Count 239 MPV 10.6 Immature Gran % (Auto) 0.400 Neut % (Auto) 60.9 Lymph % (Auto) 29.0 Power % (Auto) 8.4 Eos % (Auto) 0.9 Baso % (Auto) 0.4 Absolute Neuts (auto) 3.3 Absolute Lymphs (auto) 1.56 Total Counted Not Reportable Sodium 142 Potassium 3.1 L Chloride 111 H Carbon Dioxide 21.0 Anion Gap 10 BUN 3 L Creatinine 0.48 L Estim Creat Clear Calc 39.63 Est GFR (MDRD) Af Amer 163 Est GFR (MDRD) Non-Af 135 BUN/Creatinine Ratio 6.3 L Glucose 243 H Calcium 7.3 L Phosphorus 2.2 L Magnesium 1.6 POC Glucose 222 H 06/02/18 11:48 WBC RBC Hgb Hct MCV MCH MCHC RDW RDW Differential Plt Count MPV Immature Gran % (Auto) Neut % (Auto) Lymph % (Auto) Power % (Auto) Eos % (Auto) Baso % (Auto) Absolute Neuts (auto) Absolute Lymphs (auto) Total Counted Sodium Potassium Chloride Carbon Dioxide Anion Gap BUN Creatinine Estim Creat Clear Calc Est GFR (MDRD) Af Amer Est GFR (MDRD) Non-Af BUN/Creatinine Ratio Glucose Calcium Phosphorus Magnesium POC Glucose 193 H none Operations: None Procedures: None Summary of Care Provided: The patient is a 72-year-old female with a past medical history of hypertension, morbid obesity, diabetes mellitus type 2 and GERD who presented to the emergency department at [facility] on 05/31/2018 complaining of persistent nausea. She denied emesis but complained of fatigue/malaise/abdominal distention and cramping. She admitted to not controlling her diabetes and her blood sugars routinely run in the 250-300 range. Vital signs in the emergency department were temperature 98.9, heart rate 111, blood pressure 178/88, respiratory rate 16 and she was 94% saturated on room air. The white blood cell count was 10 with a hemoglobin of 13.8 and platelets of 315,000. There was a left shift. Serum bicarb was low at 9 and the anion gap was increased at 16. Random glucose was 334. Hemoglobin A1c was 11.4%. Mag was low at 1.5 and the LFTs were within normal limits. Lipase was normal at 132. UA was unremarkable. A CT scan of the abdomen and pelvis showed a nonvisualized gallbladder, unremarkable pancreas, fatty infiltration of the liver, a nondistended fluid-filled stomach and fluid-filled mildly dilated proximal small bowel with an unremarkable mid and distal small bowel. There was diverticulosis with no evidence of diverticulitis. She was admitted to the hospital with a diagnosis of gastroenteritis versus gastroparesis secondary to long-standing uncontrolled diabetes mellitus. She was made n.p.o. and IV fluids were ordered. Repeat KUB on 06/01/2018 showed no evidence of acute intra-abdominal or pelvic process. There was air seen throughout the nondistended colon without obstruction. She was admitted to the hospital and placed at bowel rest. Intravenous fluids were ordered. Potassium and phosphorus were supplemented. A stool lactoferrin was positive for white blood cells but the diarrhea resolved prior to obtaining a liquid stool for an enteric pathogen panel. Her diet was advanced to clear liquids then to full liquids with no recurrence of nausea/vomiting/diarrhea/abdominal. She was discharged home on 06/02/2018 and was given a prescription for Amaryl and instructed to take 2 mg daily. She was sent home with a prescription for 4 days worth of Neutra-Phos and 3 days of potassium chloride. She was instructed to maintain good intake, enough to keep her urine a pale yellow. We did not start metformin due to the diarrhea. She will follow-up with Dr. Bowers in the office in 2 weeks and she was instructed to keep a blood sugar record. She was interested in following up with the dietitians program to manage diabetes but will need a referral from Dr. Moscoso. GENERAL: alert, oriented X 3, Cooperative, NAD, lying flat in bed with no respiratory distress ORAL: moist mucosa, no mucosal lesions NECK: No JVD, supple, trachea midline LUNGS: CTA, symmetric chest expansion HEART: RRR, Normal S1 and S2, no rub, no gallop ABDOMEN: soft, NT, ND, hyperactive BS present, no guarding with palpation, no masses EXTREMITIES: no edema, no cyanosis, no calf tenderness SKIN: No rashes, no breakdown NEUROLOGIC: no focal neurologic deficits PSYCH: appropriate, normal affect, pleasant This note was generated with [email or web address] dictation software. It may contain incorrect words, spelling, and punctuation that were not noted in checking the note before signing. - Physical Exam Vital Signs Temp Pulse Resp BP Pulse Ox 98.5 F 83 18 156/89 H 96 06/02/18 10:30 06/02/18 10:30 06/02/18 10:30 06/02/18 10:30 06/02/18 10:30 Oxygen Delivery Method Room Air Weight: 186 lb 1.122 oz Body Mass Index (BMI) 34.0 Intake and Output for Last 24 Hours 05/31/18 06/01/18 06/02/18 23:59 23:59 23:59 Intake Total 1217 / 1217 4756 / 4756 Output Total 300 / 300 1100 / 1100 Balance 917 / 917 3656 / 3656 Microbiology Past 72 Hours 05/31/18 21:36 Urine Culture - Final Urine, Clean Catch Mixed Gram Pos & Gram Neg Org 06/02/18 05:39 Stool Lactoferrin - Final Stool Laboratory Tests Past 24 Hrs 06/02/18 06/02/18 06:34 06:34 WBC 5.4 RBC 4.25 Hgb 12.2 Hct 38.1 MCV 89.6 MCH 28.7 MCHC 32.0 RDW 13.4 RDW Differential 43.4 Plt Count 239 MPV 10.6 Immature Gran % (Auto) 0.400 Neut % (Auto) 60.9 Lymph % (Auto) 29.0 Power % (Auto) 8.4 Eos % (Auto) 0.9 Baso % (Auto) 0.4 Absolute Neuts (auto) 3.3 Absolute Lymphs (auto) 1.56 Total Counted Not Reportable Sodium 142 Potassium 3.1 L Chloride 111 H Carbon Dioxide 21.0 Anion Gap 10 BUN 3 L Creatinine 0.48 L Estim Creat Clear Calc 39.63 Est GFR (MDRD) Af Amer 163 Est GFR (MDRD) Non-Af 135 BUN/Creatinine Ratio 6.3 L Glucose 243 H Calcium 7.3 L Phosphorus 2.2 L Magnesium 1.6 POC Glucose 06/02/18 06/02/18 06/02/18 11:48 06:35 00:13 POC Glucose 193 H 222 H 209 H 06/01/18 06/01/18 18:29 15:09 POC Glucose 197 H 210 H Discharge Activity: Return to Normal Activity Return to work on:: 06/05/18 Call your doctor if you observe: Fever of 101 or Higher, Dizziness, Fainting spells, - - recurrent nausea and vomiting, uncontrollable diarrhea, abdominal pain Home Medications: Medications to take at Discharge Glimepiride [Amaryl] 2 mg PO DAILY #30 tab 06/02/18 Na Biphos/Potassium Phosphate [Neutra-Phos Packet] 2 packet PO BID #16 packet 06/02/18 Potassium Chloride [K-Dur] 20 meq PO BID #6 tab 06/02/18 Following Prescrptions Were Given to Patient: Glimepiride [Amaryl] 2 mg PO DAILY #30 tab Na Biphos/Potassium Phosphate [Neutra-Phos Packet] 2 packet PO BID #16 packet Potassium Chloride [K-Dur] 20 meq PO BID #6 tab Primary Care Physician: Neema Bowers DO [Primary Care Provider] - Please follow up with your Primary Care Physician in: 2 weeks Patient Instructions: Using a Blood Sugar Log, Long-Term Complications of Diabetes, Resources for People with Diabetes, MyPlate Worksheet: 1,600 Calories, ED Gastroenteritis Viral Minutes spent on discharge:: 30 Patient Condition:: Good Medical Necessity - Tobacco Use Smoking Status: Never smoker Tobacco Use: Non-smoker Meaningful Use Info Meaningful Use Diagnoses (Choose all that apply): None applicable Code Visit Inpatient E&M: 09231 Disch Hosp
--- NOTE | 2018-06-02 14:36 | DS.PCM_ITS ---
Discharge Date and Diagnosis Date of Admission: 05/31/18 Date of Discharge: 06/02/18 - Primary Discharge Diagnosis Active and Suspected Problems Gastroenteritis (Acute) Viral syndrome (Acute) Metabolic acidosis (Acute) Hypomagnesemia (Acute) Hypokalemia (Acute) Hypophosphatemia - Secondary Discharge Diagnosis Chronic Problems Poorly controlled diabetes mellitus (Chronic) - not taking any medication and the HGBA1C is 11.4% HTN (hypertension) (Chronic) Obesity (BMI 30.0-34.9) (Chronic) GERD (gastroesophageal reflux disease) (Chronic) Diverticulosis Hospital Course and Treatment Imaging Results: Clinical Impression(s) from Imaging Studies Chest X-Ray 05/31/18 20:55 IMPRESSION: Mild elevation of the right diaphragm. No acute cardiopulmonary findings. Negative for consolidation, focal atelectasis, cardiomegaly or pleural effusion. Electronically Signed: Nini Gamboa MD at 21:12 EST , Service support , Abdomen/Pelvis CT 05/31/18 20:56 IMPRESSION: Fatty hepatomegaly. Nonvisualized gallbladder. Unremarkable pancreas and spleen. No acute bowel related findings. Negative for evidence of obstruction, perforation or inflammatory bowel changes. Nondistended food filled stomach and food filled mildly dilated proximal small bowel with unremarkable mid and distal small bowel. The appendix is not identified. Mild diverticulosis of the distal colon without evidence of acute diverticulosis. The right kidney is displaced inferiorly by the enlarged right liver. Otherwise normal right kidney and normal left kidney. Negative for pelvic mass or free fluid of the pelvis. Negative for pelvic mass or free fluid of the pelvis. Electronically Signed: Nini Gamboa MD at 22:17 EST , Service support , Abdomen X-Ray 06/01/18 05:55 IMPRESSION: No evidence of acute intra-abdominal or pelvic process. Electronically Signed: Hipolito Richmond DO at 17:18 EST Tel [phone], Service support , Microbiology 05/31/18 21:36 Urine, Clean Catch Urine Culture - Final Mixed Gram Pos & Gram Neg Org 06/02/18 05:39 Stool Stool Lactoferrin - Final Laboratory Results - last 24 hr 06/01/18 06/01/18 06/02/18 15:09 18:29 00:13 WBC RBC Hgb Hct MCV MCH MCHC RDW RDW Differential Plt Count MPV Immature Gran % (Auto) Neut % (Auto) Lymph % (Auto) Dawes % (Auto) Eos % (Auto) Baso % (Auto) Absolute Neuts (auto) Absolute Lymphs (auto) Total Counted Sodium Potassium Chloride Carbon Dioxide Anion Gap BUN Creatinine Estim Creat Clear Calc Est GFR (MDRD) Af Amer Est GFR (MDRD) Non-Af BUN/Creatinine Ratio Glucose Calcium Phosphorus Magnesium POC Glucose 210 H 197 H 209 H 06/02/18 06/02/18 06/02/18 06:34 06:34 06:35 WBC 5.4 RBC 4.25 Hgb 12.2 Hct 38.1 MCV 89.6 MCH 28.7 MCHC 32.0 RDW 13.4 RDW Differential 43.4 Plt Count 239 MPV 10.6 Immature Gran % (Auto) 0.400 Neut % (Auto) 60.9 Lymph % (Auto) 29.0 Dawes % (Auto) 8.4 Eos % (Auto) 0.9 Baso % (Auto) 0.4 Absolute Neuts (auto) 3.3 Absolute Lymphs (auto) 1.56 Total Counted Not Reportable Sodium 142 Potassium 3.1 L Chloride 111 H Carbon Dioxide 21.0 Anion Gap 10 BUN 3 L Creatinine 0.48 L Estim Creat Clear Calc 39.63 Est GFR (MDRD) Af Amer 163 Est GFR (MDRD) Non-Af 135 BUN/Creatinine Ratio 6.3 L Glucose 243 H Calcium 7.3 L Phosphorus 2.2 L Magnesium 1.6 POC Glucose 222 H 06/02/18 11:48 WBC RBC Hgb Hct MCV MCH MCHC RDW RDW Differential Plt Count MPV Immature Gran % (Auto) Neut % (Auto) Lymph % (Auto) Dawes % (Auto) Eos % (Auto) Baso % (Auto) Absolute Neuts (auto) Absolute Lymphs (auto) Total Counted Sodium Potassium Chloride Carbon Dioxide Anion Gap BUN Creatinine Estim Creat Clear Calc Est GFR (MDRD) Af Amer Est GFR (MDRD) Non-Af BUN/Creatinine Ratio Glucose Calcium Phosphorus Magnesium POC Glucose 193 H none Operations: None Procedures: None Summary of Care Provided: The patient is a 72-year-old female with a past medical history of hypertension, morbid obesity, diabetes mellitus type 2 and GERD who presented to the emergency department at [facility] on 05/31/2018 complaining of persistent nausea. She denied emesis but complained of fatigue/malaise/abdominal distention and cramping. She admitted to not controlling her diabetes and her blood sugars routinely run in the 250-300 range. Vital signs in the emergency department were temperature 98.9, heart rate 111, blood pressure 178/88, respiratory rate 16 and she was 94% saturated on room air. The white blood cell count was 10 with a hemoglobin of 13.8 and platelets of 315,000. There was a left shift. Serum bicarb was low at 9 and the anion gap was increased at 16. Random glucose was 334. Hemoglobin A1c was 11.4%. Mag was low at 1.5 and the LFTs were within normal limits. Lipase was normal at 132. UA was unremarkable. A CT scan of the abdomen and pelvis showed a nonvisualized gallbladder, unremarkable pancreas, fatty infiltration of the liver, a nondistended fluid- filled stomach and fluid-filled mildly dilated proximal small bowel with an unremarkable mid and distal small bowel. There was diverticulosis with no evidence of diverticulitis. She was admitted to the hospital with a diagnosis of gastroenteritis versus gastroparesis secondary to long-standing uncontrolled diabetes mellitus. She was made n.p.o. and IV fluids were ordered. Repeat KUB on 06/01/2018 showed no evidence of acute intra-abdominal or pelvic process. There was air seen throughout the nondistended colon without obstruction. She was admitted to the hospital and placed at bowel rest. Intravenous fluids were ordered. Potassium and phosphorus were supplemented. A stool lactoferrin was positive for white blood cells but the diarrhea resolved prior to obtaining a liquid stool for an enteric pathogen panel. Her diet was advanced to clear liquids then to full liquids with no recurrence of nausea/vomiting/diarrhea/abdominal. She was discharged home on 06/02/2018 and was given a prescription for Amaryl and instructed to take 2 mg daily. She was sent home with a prescription for 4 days worth of Neutra-Phos and 3 days of potassium chloride. She was instructed to maintain good intake, enough to keep her urine a pale yellow. We did not start metformin due to the diarrhea. She will follow-up with Dr. Bowers in the office in 2 weeks and she was instructed to keep a blood sugar record. She was interested in following up with the dietitians program to manage diabetes but will need a referral from Dr. Moscoso. GENERAL: alert, oriented X 3, Cooperative, NAD, lying flat in bed with no respiratory distress ORAL: moist mucosa, no mucosal lesions NECK: No JVD, supple, trachea midline LUNGS: CTA, symmetric chest expansion HEART: RRR, Normal S1 and S2, no rub, no gallop ABDOMEN: soft, NT, ND, hyperactive BS present, no guarding with palpation, no masses EXTREMITIES: no edema, no cyanosis, no calf tenderness SKIN: No rashes, no breakdown NEUROLOGIC: no focal neurologic deficits PSYCH: appropriate, normal affect, pleasant This note was generated with [employer] dictation software. It may contain incorrect words, spelling, and punctuation that were not noted in checking the note before signing. - Physical Exam Vital Signs Temp Pulse Resp BP Pulse Ox 98.5 F 83 18 156/89 H 96 06/02/18 10:30 06/02/18 10:30 06/02/18 10:30 06/02/18 10:30 06/02/18 10:30 Oxygen Delivery Method Room Air Weight: 186 lb 1.122 oz Body Mass Index (BMI) 34.0 Intake and Output for Last 24 Hours 05/31/18 06/01/18 06/02/18 23:59 23:59 23:59 Intake Total 1217 / 1217 4756 / 4756 Output Total 300 / 300 1100 / 1100 Balance 917 / 917 3656 / 3656 Microbiology Past 72 Hours 05/31/18 21:36 Urine Culture - Final Urine, Clean Catch Mixed Gram Pos & Gram Neg Org 06/02/18 05:39 Stool Lactoferrin - Final Stool Laboratory Tests Past 24 Hrs 06/02/18 06/02/18 06:34 06:34 WBC 5.4 RBC 4.25 Hgb 12.2 Hct 38.1 MCV 89.6 MCH 28.7 MCHC 32.0 RDW 13.4 RDW Differential 43.4 Plt Count 239 MPV 10.6 Immature Gran % (Auto) 0.400 Neut % (Auto) 60.9 Lymph % (Auto) 29.0 Dawes % (Auto) 8.4 Eos % (Auto) 0.9 Baso % (Auto) 0.4 Absolute Neuts (auto) 3.3 Absolute Lymphs (auto) 1.56 Total Counted Not Reportable Sodium 142 Potassium 3.1 L Chloride 111 H Carbon Dioxide 21.0 Anion Gap 10 BUN 3 L Creatinine 0.48 L Estim Creat Clear Calc 39.63 Est GFR (MDRD) Af Amer 163 Est GFR (MDRD) Non-Af 135 BUN/Creatinine Ratio 6.3 L Glucose 243 H Calcium 7.3 L Phosphorus 2.2 L Magnesium 1.6 POC Glucose 06/02/18 06/02/18 06/02/18 11:48 06:35 00:13 POC Glucose 193 H 222 H 209 H 06/01/18 06/01/18 18:29 15:09 POC Glucose 197 H 210 H Discharge Activity: Return to Normal Activity Return to work on:: 06/05/18 Call your doctor if you observe: Fever of 101 or Higher, Dizziness, Fainting spells, - - recurrent nausea and vomiting, uncontrollable diarrhea, abdominal pain Home Medications: Medications to take at Discharge Glimepiride [Amaryl] 2 mg PO DAILY #30 tab 06/02/18 Na Biphos/Potassium Phosphate [Neutra-Phos Packet] 2 packet PO BID #16 packet 06/02/18 Potassium Chloride [K-Dur] 20 meq PO BID #6 tab 06/02/18 Following Prescrptions Were Given to Patient: Glimepiride [Amaryl] 2 mg PO DAILY #30 tab Na Biphos/Potassium Phosphate [Neutra-Phos Packet] 2 packet PO BID #16 packet Potassium Chloride [K-Dur] 20 meq PO BID #6 tab Primary Care Physician: Neema Bowers DO [Primary Care Provider] - Please follow up with your Primary Care Physician in: 2 weeks Patient Instructions: Using a Blood Sugar Log, Long-Term Complications of Diabetes, Resources for People with Diabetes, MyPlate Worksheet: 1,600 Calories, ED Gastroenteritis Viral Minutes spent on discharge:: 30 Patient Condition:: Good Medical Necessity - Tobacco Use Smoking Status: Never smoker Tobacco Use: Non-smoker Meaningful Use Info Meaningful Use Diagnoses (Choose all that apply): None applicable Code Visit Inpatient E&M: 88056 Disch Hosp
[2018-06-02 16:30] VITALS: BP 150/88; PULSE 82; RESP 16; TEMP -12.8; TEMP 9; O2SAT 96
== END 2018-06-02 17:05 | disposition home or self-care (01) ==
LOC: ED 21:32 → MS3 23:20
PROVIDERS: Admitting Provider Family Medicine; Emergency Provider Emergency Medicine; Family Provider Internal Medicine; PCP Internal Medicine; Referring Provider Family Medicine; Visit Provider Internal Medicine
DX: K52.9 Noninfective gastroenteritis and colitis, unspecified (principal); B34.9 Viral infection, unspecified; E11.65 Type 2 diabetes mellitus with hyperglycemia; I10 Essential (primary) hypertension; K21.9 Gastro-esophageal reflux disease without esophagitis; E83.39 Other disorders of phosphorus metabolism; E87.6 Hypokalemia; E66.9 Obesity, unspecified; Z68.34 Body mass index [BMI] 34.0-34.9, adult; Z71.3 Dietary counseling and surveillance; K57.90 Diverticulosis of intestine, part unspecified, without perforation or abscess without bleeding; Z79.899 Other long term (current) drug therapy; Z79.4 Long term (current) use of insulin
CPT/HCPCS: 36415; 71045; 74019; 74176; 80048; 80076; 81001; 82009; 82962; 83036; 83630; 83690; 83735; 84100; 84484; 85025; 87086; 87088; 93005; 96361; 96372; 96374; 96375; 96376; 97802; 99218; 99285; J7030; J7040; A4216; G0378; J2405; J3490

== ENCOUNTER 2024-12-30 10:28 | Emergency (ER) | payer MEDICARE, SELFPAY ==
[2024-12-30 10:29] VITALS: BP 146/89; PULSE 94; RESP 16; TEMP 36.6; O2SAT 99
--- NOTE | 2024-12-30 11:08 | VDLE_ITS ---
Reason For Study Reason For Study: LLE Pain RIGHT LEFT FV is compressible, spontaneous, phasic, competent GSV is normal. and demonstrates normal augmentation. CFV is compressible, spontaneous, phasic, competent, Procedure and demonstrates normal augmentation. This is a venous duplex using B-mode, color flow and FV is compressible, spontaneous, phasic, competent spectral Doppler. and demonstrates normal augmentation. Exam performed portable in ED. POP V is compressible, spontaneous, phasic, competent The exam was diagnostic. and demonstrates normal augmentation. A preliminary report was called and/or faxed to T/P Trunk is compressible. Palmer. PTV is compressible. LT PerV is compressible. VL/Venous Duplex US, Unilateral Interpretation Summary Deep veins of the left lower extremity are patent and compressible segmentally. There is no evidence of left lower extremity deep vein thrombosis. Valvular competence appears intact within the p roximal deep venous system on the left . The left great saphenous vein appears patent and compressible segmentally. The right femoral vein is patent and compressible. Ordering Physician: Emiliana Chakraborty Referring Physician: Neema Bowers M.D. Performed By: Benjamín Yeager RVT
--- NOTE | 2024-12-30 11:15 | RAD_ITS ---
PROCEDURE: FOOT MIN 3 VIEWS 12/30/2024 REASON FOR EXAM: PAIN, SWELLING TECHNIQUE: Left foot three views COMPARISON: None FINDINGS: There is no fracture or dislocation identified. 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 Osteopenia is noted. A benign-appearing calcaneal spur is noted. There is no focal soft tissue swelling or visible radiopaque foreign body. RAD/Foot min 3 Views IMPRESSION: No fracture or dislocation is identified. Reading Location: [facility]
--- NOTE | 2024-12-30 11:29 | ED.VIS.LOWEX ---
HPI History of Present Illness Chief Complaint: Lower Extremity Injury Informant: patient Narrative Narrative: Patient is an 79 year old female with history of diabetes, hypertension, GERD and questional history of gout presenting with worsening left foot pain. Notes she had a fall about 3 weeks ago and landed on her right knee. Thinks her left foot might of gotten caught at that time but did not have any left foot pain or symptoms until (4 days ago). Notes it was more red and swollen today. States the pain initially was over her medial ankle and foot today but now the redness and swelling is more along the lateral aspect of her midfoot and distal foot. States that she is otherwise been feeling well. States her blood sugar was 112 this morning. Denies any fever or chills. States she does not have pain at rest but has pain when she tries to walk. No other complaints or concerns reported at this time. [facility] Medical History Foot pain Home Medications ?Medication ?Instructions ?Recorded ?Last Taken ?Type glimepiride 2 mg tablet 2 mg PO DAILY #30 tabs 06/02/18 Unknown Rx potassium chloride 20 mEq 20 meq PO BID #6 tabs 06/02/18 Unknown Rx tablet,extended release(part/cryst) potassium, sodium phosphates 280 2 packet PO BID #16 packets 06/02/18 Unknown Rx mg-160 mg-250 mg oral powder packet cephalexin 500 mg capsule 500 mg PO Q6 #40 CAPSULES 12/30/24 Unknown Rx Allergy/AdvReac Type Severity Reaction Status Date / Time Sulfa (Sulfonamide Allergy Rash Verified 12/30/24 10:31 Antibiotics) Social History Smoking Status: Never smoker ROS ROS ED Constitutional Constitutional ED: Denies chills or fever(s) Musculoskeletal Musculoskeletal: Reports other Details: left foot pain Integumentary Reports rash; Denies Abrasions Neurologic Neurologic: Reports paresthesias; Denies weakness Psychiatric Psychiatric: Denies anxiety Hematologic/Lymphatic Hematologic/Lymphatic: Denies easy bleeding or easy bruising EXAM Physical Exam Const Vital Signs: 12/30/24 10:29 Temperature 97.8 F Temperature Source Oral Pulse Rate 94 Respiratory Rate 16 Blood Pressure 146/89 H Blood Pressure Mean 108 Pulse Ox 99 Oxygen Delivery Method Room Air Positive well nourished and well developed General Appearance ED: well developed and NAD HEENT Reports moist mucous membranes normocephalic and atraumatic Chest Wall inspection of chest normal Resp normal respiratory effort Cardio regular rate and regular rhythm Cardio Narrative: 2+ DP pulses Extremity Extremity Narrative: Slight soft tissue swelling/nonpitting edema to the dorsal lateral aspect of the left foot. Some slight warmth and erythema present with no associate lymphangitic streaking. No pinpoint bony tenderness of the metatarsals, toes of the left foot or of the ankle. Normal Villaseñor test. Calf compartments are soft. No tenderness over the fibular head. Normal range of motion of the knee and no pain with logroll of the left hip. Neuro oriented x3 Sensorium / Orientation: alert Psych mental status grossly normal Skin Skin Narrative: Subtle erythema of the anterior lateral midfoot. Healing abrasion to the right anterior knee from a prior fall. No secondary signs of infection. No active bleeding. MDM MDM MDM Narrative Medical decision making narrative: Patient evaluated for increasing left foot pain and swelling. Differential includes osteoarthritis, DVT, cellulitis, gout and fracture. Venous duplex obtained which is negative for DVT. X-ray reviewed by myself as well as radiology does not show any fracture or dislocation however does show some degenerative changes. Initially patient did have some mild warmth and redness to the foot however on repeat evaluation after having her foot elevated in the emergency room this is actually resolved. She does not have any significant range of motion pain and lower suspicion for gout. Discussed that this might be more inflammatory however it is possible that it is an early cellulitis. Lower suspicion given that she does not have any systemic symptoms and the redness actually resolved in the emergency room. Is given a [id number] course of antibiotics just in case. Otherwise be treated symptomatically with RICE therapy. She reports her blood sugar was 112 this morning so I have lower suspicion for an underlying metabolic derangement causing her pain I do not think she requires blood work at this time. Patient agreeable this plan of care. Discharged home in stable condition. Radiography Diagnostic Testing: Clinical Impression(s) from Imaging Studies Venous Doppler Study 12/30/24 11:08 Interpretation Summary Deep veins of the left lower extremity are patent and compressible segmentally. There is no evidence of left lower extremity deep vein thrombosis. Valvular competence appears intact within the proximal deep venous system on the left . The left great saphenous vein appears patent and compressible segmentally. The right femoral vein is patent and compressible. Ordering Physician: Emiliana Chakraborty Referring Physician: Neema Bowers M.D. Performed By: Benjamín Yeager RVT Foot X-Ray 12/30/24 11:15 IMPRESSION: No fracture or dislocation is identified. Reading Location: [facility] Discharge Plan Triage Chief Complaint: Lower Extremity Injury ED Provider: Emiliana Chakraborty Dx/Rx/DC Orders Clinical Impression: Acute pain of left foot Instructions: ED Pain, Acute, Uncertain Cause Prescriptions: New cephalexin 500 mg capsule 500 mg PO Q6 Qty: 40 0RF No Action glimepiride 2 MG tablet 2 mg PO DAILY Qty: 30 0RF potassium, sodium phosphates 1 PACKET packet 2 packet PO BID Qty: 16 0RF potassium chloride 20 MEQ tablet 20 meq PO BID Qty: 6 0RF Primary Care Provider: Neema Bowers Referrals: Elliott Lowery MD [Med Staff - Active Staff] - Neema Bowers DO [Primary Care Provider] - Activity Restrictions/Additional Instructions: Your x-ray did not show any broken bones or acute bony abnormalities. Your ultrasound was negative for DVT. This could just be inflammation of your foot that is causing the pain and swelling. Try to elevate it throughout the day and use ice as well as ibuprofen or Tylenol for pain control. If you have worsening redness, develop fever or chills or worsening rash of the foot please start taking the antibiotics in case this is an early cellulitis that is not become obvious yet. If you do not develop the symptoms you do not need to take the antibiotics prescribed today. Please follow-up with the camp recreation specialist Print Language: Romanian Disposition Disposition: Home, Self Care Discharge Date/Time: 12/30/24 13:26
== END 2024-12-30 13:26 | disposition home or self-care (01) ==
PROVIDERS: Emergency Provider Emergency Medicine; PCP Internal Medicine; Visit Provider Emergency Medicine
DX: M79.672 Pain in left foot (principal); E11.9 Type 2 diabetes mellitus without complications; I10 Essential (primary) hypertension; R20.2 Paresthesia of skin; K21.9 Gastro-esophageal reflux disease without esophagitis
CPT/HCPCS: 73630; 93971; 99282

== ENCOUNTER → 2025-01-10 | Outpatient (CLI) | payer MEDICARE, SELFPAY ==
--- NOTE | 2025-01-10 08:48 | US_ITS ---
PROCEDURE: ABD LIMITED W/ ELASTOGRAPHY 01/10/2025 REASON FOR EXAM: FATTY LIVER TECHNIQUE: Procedure Code: [id number] Modality: US Procedure: ABD LIMITED W/ ELASTOGRAPHY COMPARISON: CT from 2019 FINDINGS: Liver: Diffusely echogenic suggesting fatty infiltration. Liver measures 15.3 cm in greatest CC dimension. Portal flow is hepatopetal. No discrete mass Gallbladder: Previously removed Common bile duct: Normal measuring 3.9 mm. Pancreas: Visualized pancreas is sonographically normal Kidneys: The right kidney measures 9.4 x 4.9 x 4.7 cm. Cortex measures 1.0 cm, no obstructive uropathy or suspicious solid renal lesion. The left kidney measures . Elastography: Median velocity value kPa 5.9, kPa%7.6 m/s 1.4 m/s%3.4 Metavir score F2 F3 US/ABD Limited w/ Elastography IMPRESSION: Diffuse fatty infiltration of the liver with Metavir score of F 2 to F 3. No d iscrete lesion Remote cholecystectomy Reading Location: [id number]
== END | disposition home or self-care (01) ==
PROVIDERS: PCP Internal Medicine; Referring Provider Internal Medicine; Visit Provider Internal Medicine
DX: K76.0 Fatty (change of) liver, not elsewhere classified (principal)
CPT/HCPCS: 76705; 76981